=== PATIENT | female | born 2005 | race Caucasian/White ===

== ENCOUNTER 2024-09-20 15:23 | Outpatient (CLI) | payer BC, SELFPAY ==
[2024-09-21 02:36] LABS: Chlamydia DNA Amplified* NOT DETECTED (No Detected); GC DNA Amplified* NOT DETECTED (No Detected)
== END 2024-09-20 15:24 | disposition home or self-care (01) ==
PROVIDERS: Visit Provider Physician Assistant
DX: Z12.4 Encounter for screening for malignant neoplasm of cervix (principal); Z01.812 Encounter for preprocedural laboratory examination; Z11.3 Encounter for screening for infections with a predominantly sexual mode of transmission
CPT/HCPCS: 87491; 87591; 87624; 87625; 88141; 88142